=== PATIENT | male | born 1975 | race Caucasian/White ===

== ENCOUNTER 2020-01-01 09:12 | Emergency (ER) | payer OTHER ==
[2020-01-01] MEDS ORDERED: HYDROmorphone 1 MG/ML Syringe IVPUSH ONE ×3 (09:17→13:46)
[2020-01-01] MEDS ORDERED: Sodium Chloride 0.9% 10 ML Syringe FLUSH PRN (09:17)
[2020-01-01] MEDS ORDERED: Sodium Chloride 0.9% 2.5 ML Syringe FLUSH PRN (09:17)
--- NOTE | 2020-01-01 09:22 | EDM.PDOC ---
ED HPI GENERAL MEDICAL PROBLEM - General Stated Complaint: INJURED left ARM Time Seen by Provider: 01/01/20 09:16 Source of Information: Reports: Patient History Limitations: Reports: No Limitations - History of Present Illness INITIAL COMMENTS - FREE TEXT/NARRATIVE: 44-year-old male presents with left elbow pain after slipping on snow and falling on his left elbow just prior to arrival. He admits to hitting the left side of his head but there was no LOC or headache. He admits to pain to his left elbow, moderate, nonradiating, exacerbated with range of motion, alleviated with immobilization, constant. He is right-handed. ROS: A 10-point review of systems, other than pertinent positives and negatives as stated per HPI, is otherwise negative Past medical history: Colon cancer, no additional pertinent history Past Surgical history: No additional pertinent history Social history: No additional pertinent history Family history: No additional pertinent history PHYSICAL EXAM General: AOx4, GCS = 15, moderate distress HEENT: dry mucous membrane, NC/AT, no frias sign, no raccoon sign, no otorrhea, no rhinorrhea. Neck: supple, no meningismus, no Kernig or Brudzinski Cardiac: S1S2 RRR Respiratory: CTAB, no crackles or rales, no wheezing Abdomen: Soft, nontender, no rebound or guarding, nondistended, no pulsatile mass. Back: nontender to C/T/L-spine Musculoskeletal: NVI distally,left elbow tenderness with deformity, no open fractures, symmetrical bounding radial pulses bilaterally. LUE bicep/tricep comp artments soft. Neuro: No focal deficits, normal gait. left shoulder Pain Score (Numeric/FACES): 4 - Related Data Allergies Allergy/AdvReac Type Severity Reaction Status Date / Time No Known Allergies Allergy Verified 01/01/20 09:22 Home Meds: Home Meds Acetaminophen/oxyCODONE [Percocet 325-5 MG] 1 each PO Q6H PRN #12 tab 01/01/20 [Rx] Review of Systems - Review of Systems Review Of Systems: Comprehensive ROS is negative, except as noted in HPI. ED EXAM, GENERAL - Physical Exam Exam: See Below (see dictation) ED TRAUMA EXTREMITY PROCEDURES - Joint Reduction Left Elbow Sedation: Conscious Sedation Pre-Procedure NV Status: Normal Post-Procedure NV Status: Normal Technique: Traction/Counter Traction Number of Attempts: 1 Post-Reduction Imaging: Acceptably Reduced Joint Reduction Complications: No - Splinting Left Upper Extremity Pre-Procedure NV Status: Normal Post-Procedure NV Status: Normal Splint Material: Fiberglass Splint Design: Posterior (long arm) Applied & Form Fitted By: Nurse Provider Post-Splint Application NV Check: NV Status Normal, Good Position Complications: No Progress/Comments: Splint: Posterior long-arm Indication: closed fracture left distal humerus How will this benefit patient: immobilization Duration: 7 days Course - Vital Signs Last Recorded V/S: Last Vital Signs Temp 98.4 F 01/01/20 10:21 Pulse 74 01/01/20 13:24 Resp 16 01/01/20 13:24 BP 130/94 H 01/01/20 13:24 Pulse Ox 92 L 01/01/20 13:24 - Orders/Labs/Meds Orders: Active Orders 24 hr Category Date Time Status Cardiac Monitoring [RC] . DIRECTED Care 01/01/20 09:17 Active Pulse Oximetry [RC] ASDIRECTED Care 01/01/20 09:17 Active Sodium Chloride 0.9% [Saline Flush] Med 01/01/20 09:17 Active 10 ml FLUSH ASDIRECTED PRN Sodium Chloride 0.9% [Saline Flush] Med 01/01/20 09:17 Active 2.5 ml FLUSH ASDIRECTED PRN Saline Lock Insert [OM.PC] Stat Oth 01/01/20 09:17 Ordered Medication Orders Sodium Chloride (Saline Flush) 10 ml FLUSH ASDIRECTED PRN PRN Reason: Keep Vein Open Last Admin: 01/01/20 09:30 Dose: 10 ml Documented by: DOMINICK Sodium Chloride (Saline Flush) 2.5 ml FLUSH ASDIRECTED PRN PRN Reason: Keep Vein Open Last Admin: 01/01/20 09:30 Dose: 2.5 ml Documented by: DOMINICK Meds: Medications Generic Name Dose Route Start Last Admin Trade Name Azra PRN Reason Stop Dose Admin Sodium Chloride 10 ml 01/01/20 09:17 01/01/20 09:30 Saline Flush FLUSH 10 ml ASDIRECTED PRN Administration Keep Vein Open Sodium Chloride 2.5 ml 01/01/20 09:17 01/01/20 09:30 Saline Flush FLUSH 2.5 ml ASDIRECTED PRN Administration Keep Vein Open Discontinued Medications Generic Name Dose Route Start Last Admin Trade Name Azra PRN Reason Stop Dose Admin Fentanyl Confirm 01/01/20 10:50 Sublimaze Administered 01/01/20 10:51 Dose 100 mcg .ROUTE .STK-MED ONE Hydromorphone HCl 1 mg 01/01/20 09:17 01/01/20 09:28 Dilaudid IVPUSH 01/01/20 09:18 1 mg ONETIME ONE Administration Hydromorphone HCl 1 mg 01/01/20 10:14 01/01/20 10:19 Dilaudid IVPUSH 01/01/20 10:15 1 mg ONETIME ONE Administration Hydromorphone HCl Confirm 01/01/20 12:04 01/01/20 13:04 Dilaudid Administered 01/01/20 12:05 2 mg Dose Administration 2 mg .ROUTE .STK-MED ONE Hydromorphone HCl 1 mg 01/01/20 13:46 Dilaudid IVPUSH 01/01/20 13:47 ONETIME ONE Ketamine HCl Confirm 01/01/20 10:50 Ketalar Administered 01/01/20 10:51 Dose 500 mg .ROUTE .STK-MED ONE Midazolam HCl Confirm 01/01/20 10:50 Versed 1 Mg/Ml Administered 01/01/20 10:51 Dose 4 mg .ROUTE .STK-MED ONE Ondansetron HCl 4 mg 01/01/20 09:33 01/01/20 09:36 Zofran IVPUSH 01/01/20 09:34 4 mg ONETIME ONE Administration Ondansetron HCl 4 mg 01/01/20 09:33 01/01/20 09:38 Zofran IVPUSH 01/01/20 09:34 Not Given ONETIME ONE Propofol Confirm 01/01/20 10:50 Diprivan 20 Ml Administered 01/01/20 10:51 Dose 200 mg .ROUTE .STK-MED ONE Propofol Confirm 01/01/20 10:51 Diprivan 20 Ml Administered 01/01/20 10:52 Dose 200 mg .ROUTE .STK-MED ONE Propofol Confirm 01/01/20 10:51 Diprivan 20 Ml Administered 01/01/20 10:52 Dose 200 mg .ROUTE .STK-MED ONE - Re-Assessments/Exams Free Text/Narrative Re-Assessment/Exam: 01/01/20 09:53 Patient will require transfer to outside facility for the need of higher level of care not available at this facility, and the need for orthopedics reporting consultant services unavailable at this facility today. Patient has not eaten anything since last night, drank 16 ounces of coffee this morning. Attempted to call with [facility], they are on med/surg and critical care diversion. Attempted to call with Jim Acosta, they are on med/surg and critical care diversion. 01/01/20 10:02 Attempted to call with Jim Acosta, , want face sheet. 01/01/20 10:36 d/w Dr. Castaneda (orthopedics) at [facility], he looked at the XRay, he recommends reducing and placing in the posterior long splint, then follow up with orthropedics within this week for surgery. 01/01/20 10:54 Patient now states he lives in [place] and wants to follow up with orthopedics in that area. Dr. Yogi Persaud , f/u , NPO after midnight . 01/01/20 13:50 After prolonged observation in the ER, the patient is back to baseline mentation, and is currently stable for discharge. I performed a repeat exam and did not appreciate new abnormal findings. Patient exhibits normal vital signs and has a normal gait on road test. His left arm is NVI distally after splintng. I advised the patient to return to the ER for reevaluation if symptoms worsened, including fever, worsening pain, or any other worrisome symptoms. I instructed the patient to follow up with Dr. Yogi Persaud on morning. MEDICAL DECISION MAKING: I reviewed the patients past medical records, lab and radiographic findings. I discussed the case with the patient. My differential diagnosis included: Fracture, dislocation, sprain. The affected extremity demo nstrated good distal perfusion, warm, pink, cap refill <2 seconds, compartments soft, pulses equal in both extremities. Patient understands to return immediately for worsening pain, swelling, fever, numbness/tingling. Departure - Departure Time of Disposition: 11:05 Disposition: Home, Self-Care 01 Condition: Good Clinical Impression: Fracture of humerus - Discharge Information *PRESCRIPTION DRUG MONITORING PROGRAM REVIEWED*: Not Applicable *COPY OF PRESCRIPTION DRUG MONITORING REPORT IN PATIENT DELBERT: Not Applicable Prescriptions: Acetaminophen/oxyCODONE [Percocet 325-5 MG] 1 each PO Q6H PRN #12 tab PRN Reason: Pain (Moderate 4-6) Instructions: Cast or Splint Care, Adult, [id number], How To Use a Sling, [id number], Distal Humerus Elbow Fracture Forms: ED Department Discharge Additional Instructions: The need for follow-up, as well as the timing and circumstances, are variable depending upon the specifics of your emergency department visit. If you don't have a primary care physician on staff, we will provide you with a referral. We always advise you to contact your personal physician following an emergency department visit to inform them of the circumstance of the visit and for follow-up with them and/or the need for any referrals to a consulting specialist. The emergency department will also refer you to a specialist when appropriate. This referral assures that you have the opportunity for follow-up care with a specialist. All of these measure are taken in an effort to provide you with optimal care, which includes your follow-up. Under all circumstances we always encourage you to contact your private physician who remains a resource for coordinating your care. When calling for follow-up care, please make the office aware that this follow-up is from your recent emergency room visit. If for any reason you are refused follow-up, please contact the [facility] Emergency Department at and asked to speak to the emergency department charge nurse. Your outpatient surgery is scheduled for , you need to not eat or drink anything past midnight Tuesday night, and follow-up with: Dr. Yogi Persaud [phone] [facility] [address] [place] [id number] Sepsis Event Note (ED) - Focused Exam Vital Signs: Vital Signs Temp Pulse Resp BP Pulse Ox 01/01/20 13:24 74 16 130/94 H 92 L 01/01/20 12:31 77 24 H 153/89 H 98 01/01/20 10:21 98.4 F 78 18 148/92 H 92 L 01/01/20 09:19 96 F L 74 18 120/80 94 L - My Orders Last 24 Hours: My Active Orders 01/01/20 09:17 Cardiac Monitoring [RC] . DIRECTED Pulse Oximetry [RC] ASDIRECTED Sodium Chloride 0.9% [Saline Flush] 10 ml FLUSH ASDIRECTED PRN Sodium Chloride 0.9% [Saline Flush] 2.5 ml FLUSH ASDIRECTED PRN Saline Lock Insert [OM.PC] Stat - Assessment/Plan Last 24 Hours: My Active Orders 01/01/20 09:17 Cardiac Monitoring [RC] . DIRECTED Pulse Oximetry [RC] ASDIRECTED Sodium Chloride 0.9% [Saline Flush] 10 ml FLUSH ASDIRECTED PRN Sodium Chloride 0.9% [Saline Flush] 2.5 ml FLUSH ASDIRECTED PRN Saline Lock Insert [OM.PC] Stat
[2020-01-01] MEDS ORDERED: Ondansetron 4 MG/2 ML SDV IVPUSH ONE ×2 (09:33)
--- NOTE | 2020-01-01 10:15 | CR ---
Indication: Injury and pain Technique: Left elbow 2 views Comparison: None Findings/Impression: Bones: Acute mildly comminuted and angulated fracture is in the distal shaft of the left humerus. Joint spaces: Unremarkable elbow joint. No significant joint effusion. Soft tissues: Unremarkable. Dictated by Duane Gregorio MD @ Jan 01 2020 10:11AM Signed by Dr. Duane Gregorio @ Jan 01 2020 10:13AM
[2020-01-01] MEDS ORDERED: fentaNYL 100 MCG/2 ML SDV ONE (10:50)
[2020-01-01] MEDS ORDERED: Ketamine 500 mg/10 ML MDV ONE (10:50)
[2020-01-01] MEDS ORDERED: Propofol 200 MG/20 ML SDV ONE ×3 (10:50→10:51)
[2020-01-01] MEDS ORDERED: Midazolam 1 MG/ML 2 ML SDV ONE (10:50)
--- NOTE | 2020-01-01 11:24 | PCM.PREANE ---
Preanesthetic Assessment - Procedure Proposed Procedure: MAC for closed reduction of humerus fracture in ED. Discussed anesthesia risks, benefits, alternatives, recovery, and anesthesia coverage. All questions answered and concerns addressed. Consent signed in presence of RN witness. - Anesthesia/Transfusion/Family Hx Anesthesia History: Prior Anesthesia Without Reaction (Surgery for colon/rectal CA (GA without complications), and Left elbow surgey without anesthesia complica tions) Family History of Anesthesia Reaction: No Transfusion History: No Prior Transfusion(s) Intubation History: Unknown (Denies sore throat after anesthesia) Additional History: History of colon/ rectal cancer with resection. Denies any additional medical history. Pt states he drinks 3-4 drinks daily. Denies other recreational substances. - Review of Systems General: No Symptoms Pulmonary: No Symptoms Cardiovascular: No Symptoms Gastrointestinal: No Symptoms Neurological: No Symptoms Other: Reports: None - Physical Assessment NPO Status Date: 01/01/20 (black coffee, no solids since 12/31/19) NPO Status Time: 08:30 Vital Signs: Last Vital Signs Temp 36.9 C 01/01/20 10:21 Pulse 78 01/01/20 10:21 Resp 18 01/01/20 10:21 BP 148/92 H 01/01/20 10:21 Pulse Ox 92 L 01/01/20 10:21 Height: 1.91 m Weight: 122.47 kg ASA Class: 2E Mental Status: Alert & Oriented x3 Dentition: Reports: Normal Dentition Thyro-Mental Finger Breadths: 3 Mouth Opening Finger Breadths: 3 ROM/Head Extension: Full Lungs: Normal Respiratory Effort Cardiovascular: Regular Rate, Regular Rhythm - Allergies Allergies/Adverse Reactions: Allergies Allergy/AdvReac Type Severity Reaction Status Date / Time No Known Allergies Allergy Verified 01/01/20 09:22 - Anesthesia Plan Free Text/Narrative:: Plan for MAC sedation, possibility of GA described to patient prior to consent. Pre-Op Medication Ordered: Anxiolytic (2 mg versed for anxiolysis. See provider simple note for anesthesia notes.) - Acknowledgements Anesthesia Type Planned: MAC Pt an Appropriate Candidate for the Planned Anesthesia: Yes Alternatives and Risks of Anesthesia Discussed w Pt/Guardian: Yes Pt/Guardian Understands and Agrees with Anesthesia Plan: Yes Additional Comments: No home medications. PreAnesthesia Questionnaire Musculoskeletal History: Reports: Back Pain, Chronic Oncologic (Cancer) History: Reports: Colon, Other (See Below) Other Oncologic History: Rectal - Infectious Disease History Infectious Disease History: Reports: Chicken Pox - Past Surgical History GI Surgical History: Reports: Colon, Colonoscopy, EGD Musculoskeletal Surgical History: Reports: Other (See Below) Other Musculoskeletal Surgeries/Procedures:: Left Elbow - SUBSTANCE USE Tobacco Use Status *Q: Never Tobacco User Recreational Drug Use History: No - HOME MEDS Home Medications: Home Meds Acetaminophen/oxyCODONE [Percocet 325-5 MG] 1 each PO Q6H PRN #12 tab 01/01/20 [Rx] - CURRENT (IN HOUSE) MEDS Current Meds: Current Medications Sodium Chloride (Saline Flush) 10 ml FLUSH ASDIRECTED PRN PRN Reason: Keep Vein Open Last Admin: 01/01/20 09:30 Dose: 10 ml Documented by: Sodium Chloride (Saline Flush) 2.5 ml FLUSH ASDIRECTED PRN PRN Reason: Keep Vein Open Last Admin: 01/01/20 09:30 Dose: 2.5 ml Documented by: Discontinued Medications Fentanyl (Sublimaze) Confirm Administered Dose 100 mcg .ROUTE .STK-MED ONE Stop: 01/01/20 10:51 Hydromorphone HCl (Dilaudid) 1 mg IVPUSH ONETIME ONE Stop: 01/01/20 09:18 Last Admin: 01/01/20 09:28 Dose: 1 mg Documented by: Hydromorphone HCl (Dilaudid) 1 mg IVPUSH ONETIME ONE Stop: 01/01/20 10:15 Last Admin: 01/01/20 10:19 Dose: 1 mg Documented by: Ketamine HCl (Ketalar) Confirm Administered Dose 500 mg .ROUTE .STK-MED ONE Stop: 01/01/20 10:51 Midazolam HCl (Versed 1 Mg/Ml) Confirm Administered Dose 4 mg .ROUTE .STK-MED ONE Stop: 01/01/20 10:51 Ondansetron HCl (Zofran) 4 mg IVPUSH ONETIME ONE Stop: 01/01/20 09:34 Last Admin: 01/01/20 09:36 Dose: 4 mg Documented by: Ondansetron HCl (Zofran) 4 mg IVPUSH ONETIME ONE Stop: 01/01/20 09:34 Last Admin: 01/01/20 09:38 Dose: Not Given Documented by: Propofol (Diprivan 20 Ml) Confirm Administered Dose 200 mg .ROUTE .STK-MED ONE Stop: 01/01/20 10:51 Propofol (Diprivan 20 Ml) Confirm Administered Dose 200 mg .ROUTE .STK-MED ONE Stop: 01/01/20 10:52 Propofol (Diprivan 20 Ml) Confirm Administered Dose 200 mg .ROUTE .STK-MED ONE Stop: 01/01/20 10:52
--- NOTE | 2020-01-01 11:44 | PCM.SN.2 ---
- Free Text/Narrative Note: Anesthesia time: [id number] 1135- ED bay 6 for closed reduction of left humerus fracture. Medical history reviewed and discussed with pt, physical examination, educated and consented with RN witness. -Monitors on (BP, pulse ox., 3-lead EKG, ETCO2) and 6L NC. VSS. Airway supplies and emergency meds present. BP Q3 min, see nursing record for VS. LR drip to 20g in RA. 1145- Pre-medicated with 50 mcg fentanyl and 2mg versed IV. 1149- time-out, sedated for procedure by Dr. Rios. Medications given IV and incrementally, with totals as follows: 4 mg versed (including pre-med. dose), 100mcg fentanyl (including pre-med. dose), 25 mg ketamine, 80mg lido. 2%, and 200mg propofol. Pt remained spontaneously breathing and responsive to stimuli. VS remained stable throughout. O2 SAT dropped for 10-20 seconds, lowest 82%, partial obstruction relieved with size 11 oral airway, SAT quickly up to 96% and airway was removed roughly three minutes later. 1203- procedure end. Pt alert and oriented, complaining of 9/10 pain. 0.5mg dilaudid given. 1210- reports adequate pain control, 3/10. 1220- Pt fully awake, pain well-controlled, VS have been stable for recovery period. (HR 70-80, NSR, O2 SAT 95-98%, BP systolic 120-140, diastolic 70-80.) Care transferred to ED MD and RN, full report given.
[2020-01-01] MEDS ORDERED: HYDROmorphone 2 MG/ML Syringe ONE (12:04)
--- NOTE | 2020-01-01 12:45 | CR ---
Indication: Fracture post reduction Technique: Left elbow 2 views Comparison: January 01, 2020 Findings/Impression: Comminuted fracture in the distal humerus has been reduced with improved fracture alignment. The fracture is now clearly visualized extending to the articulating surface of the elbow. No other significant changes. Dictated by Duane Gregorio MD @ Jan 01 2020 12:39PM Signed by Dr. Duane Gregorio @ Jan 01 2020 12:44PM
--- NOTE | 2020-01-01 13:44 | CT ---
INDICATION: Pain. Injury. COMPARISON: Plain film same date. TECHNIQUE: Patient size and immobility limits [id number]. Multi detector imaging performed on the humerus and left elbow. Lateral distal humerus and lateral most margin of the radial head are not included in the field of view. FINDINGS: Complex fracture of the distal humerus with transverse proximal fracture orientation with up to 9 mm impaction and apex ventral angulation. Longitudinal fracture extends through the intercondylar notch into the elbow joint with up 4 mm diastasis. Curvilinear 4 mm ossicle abutting the dorsal medial margin of the left ulna. It is unclear if this arises from ulna or medial humerus. It appears to be intra-articular. No other intra-articular fragment. Within limitations of positioning, elbow alignment appears anatomic. IMPRESSION: 1. Complex apex ventral angulated and mildly impacted fracture of the distal humerus with longitudinal intra-articular extension through the intercondylar notch. 2. Small 4 mm intra-articular ossicle at the medial dorsal margin of the joint. It is unclear if the ossicle originates from the medial condyle of the humerus or the ulna. Please note that all CT scans at this facility use dose modulation, iterative reconstruction, and/or weight-based dosing when appropriate to reduce radiation dose to as low as reasonably achievable. Dictated by Brayden Carvajal MD @ Jan 01 2020 1:43PM Signed by Dr. Brayden Carvajal @ Jan 01 2020 1:43PM
== END 2020-01-01 14:12 | disposition home or self-care (01) ==
LOC: MW.ED 09:12
DX: S42.352A Displaced comminuted fracture of shaft of humerus, left arm, initial encounter for closed fracture (principal); W00.9XXA Unspecified fall due to ice and snow, initial encounter
CPT/HCPCS: 24505; 73070; 76882; 96374; 96375; 96376; 99284; J1170; J2250; J2405; J2704; J3010; 23605; 29105